=== PATIENT | male | born 1975 | race Caucasian/White ===

== ENCOUNTER 2016-08-21 11:19 | Emergency (ER) | payer BC ==
--- NOTE | 2016-08-21 11:57 | REP ---
Clinical: Trauma . Technique: Internal rotation, external rotation, and Y view left shoulder . Findings: No acute fracture or dislocation. The acromioclavicular and glenohumeral joints are intact. No periarticular calcifications or degenerative changes are appreciated. Sub acromial space is normal. Surrounding soft tissues are unremarkable. Impression: Normal left shoulder radiographs. Signed by Gustavo Mann MD 08/21/2016 11:47 A
--- NOTE | 2016-08-21 12:50 | EDDOCDS ---
Physician Documentation [facility] Name: Wilfrido Yadav Age: 41 yrs Sex: Male : 1975 Arrival Date: 08/21/2016 Time: 11:19 Bed I9 / 22 Private MD: Joe Dawson Disposition: 08/21/16 12:21 Discharged to Home/Self Care. Impression: Contusion of left shoulder. - Condition is Stable. - Discharge Instructions: Shoulder Pain. - Prescriptions for Ibuprofen 600 mg Oral Tablet - take 1 tablet by ORAL route every 6 hours As needed take with food; 30 tablet. - Medication Reconciliation, Local Pharmacy Hours form. - Follow up: Joe Dawson MD; When: As needed; Reason: Continuance of care. - Problem is new. - Symptoms are unchanged. - Notes: ice 20 min an hour Historical: - Allergies: no known allergies; - Home Meds: 1. nortriptyline 75 mg Oral cap 1 cap nightly - PMHx: Intercostal Neuropathy; - PSHx: Cholecystectomy; - Social history: Smoking status: Patient states was never smoker of tobacco. No barriers to communication noted, The patient speaks fluent Hungarian. - Family history: Not pertinent. - : The pt / caregiver states he / she is not on anticoagulants. Home medication list is obtained from the patient. - Exposure Risk Screening:: None identified. Vital Signs: 08/21 11:21 BP 167 / 87; Pulse 106; Resp 18; Temp 98.8(O); Pulse Ox 99% on R/A; Weight 99.79 kg / sar1 220 lbs (R); Height 65 in. (165.10 cm) (R); Pain 5/10; 12:48 BP 143 / 94; Pulse 102; Resp 20; Temp 97.8(O); Pulse Ox 96% on R/A; Pain 5/10; jml1 11:21 Body Mass Index 36.61 (99.79 kg, 165.10 cm) sar1 MDM: 11:33 Shoulder, Complete Ordered. EDMS Signatures: Dispatcher [employer] EDMS Cirilo Henderson RN RN po Elsner, Karl, AIRPORT CLERK AIRPORT CLERK Lidia Oliver RN RN jc4 MTDD
--- NOTE | 2016-08-21 12:50 | EDDOCDS ---
Nurse's Notes [facility] Name: Wilfrido Yadav Age: 41 yrs Sex: Male : 1975 Arrival Date: 08/21/2016 Time: 11:19 Bed I9 / 22 Private MD: Joe Dawson Diagnosis: Contusion of left shoulder Presentation: 08/21 11:26 Presenting complaint: Patient states: tripped and landed on left shoulder this am, pain po since. Adult Sepsis Screening: The patient does not have new or worsening altered mentation. Patient's respiratory rate is less than 22. Systolic blood pressure is greater than 100. Patient has a qSOFA score of 0- Negative Sepsis Screen. Suicide/Homicide risk assessment- the patient denies having any suicidal and/or homicidal ideations and does not present with any other emotional, behavioral or mental health complaints. Status: Patient is not a electrical service technician or dependent. Transition of care: patient was not received from another setting of care. 11:26 Acuity: PJ Level 4 po 11:26 Method Of Arrival: Walkin/Carried/Asstd po Triage Assessment: 11:28 General: Appears in no apparent distress, comfortable, Behavior is appropriate for age, po cooperative. Pain: Location: anterior aspect of left shoulder Pain currently is 5 out of 10 on a pain scale. Quality of pain is described as sharp, Is continuous. Pt Declines HIV testing. Neurological: Level of Consciousness is awake, alert, Oriented to person, place, time. Respiratory: Airway is patent Respiratory effort is even, unlabored. Derm: Skin is pink, warm & dry. Historical: - Allergies: no known allergies; - Home Meds: 1. nortriptyline 75 mg Oral cap 1 cap nightly - PMHx: Intercostal Neuropathy; - PSHx: Cholecystectomy; - Social history: Smoking status: Patient states was never smoker of tobacco. No barriers to communication noted, The patient speaks fluent Emirati. - Family history: Not pertinent. - : The pt / caregiver states he / she is not on anticoagulants. Home medication list is obtained from the patient. - Exposure Risk Screening:: None identified. Screenin:48 Screening information is obtained from the patient. Fall risk: No risks identified. jc4 Assistance ADL's: requires no assistance with activities of daily living. Abuse/DV Screen: The patient / caregiver reports he/she is: not in a situation that causes fear, pain or injury. Nutritional screening: No deficits noted. Advance Directives: Currently, there is no health care proxy. There is no active DNR order. There is no living will. There is no Power of Tower Erector. home support is adequate. Assessment: 12:47 General: Appears in no apparent distress, Behavior is cooperative, pleasant. Pain: jc4 Location: anterior aspect of left shoulder Pain currently is 5 out of 10 on a pain scale. Neurological: Level of Consciousness is awake, alert, Oriented to person, place, time. Respiratory: Airway is patent Respiratory effort is even, unlabored, Respiratory pattern is regular, symmetrical. Derm: Skin is pink, warm & dry. Vital Signs: 11:21 BP 167 / 87; Pulse 106; Resp 18; Temp 98.8(O); Pulse Ox 99% on R/A; Weight 99.79 kg sar1 (R); Height 65 in. (165.10 cm) (R); Pain 5/10; 12:48 BP 143 / 94; Pulse 102; Resp 20; Temp 97.8(O); Pulse Ox 96% on R/A; Pain 5/10; jml1 11:21 Body Mass Index 36.61 (99.79 kg, 165.10 cm) [facility] Vitals: 11:21 Log In Time: August 21, 2016 at 11:[address] [facility] ED Course: 11:21 Patient visited by Karen Wahl, Web Systems Developer. sar1 11:21 Joe Dawson MD is Private Physician. sar1 11:21 Patient moved to Waiting sar1 11:23 Patient moved to Pre RCE sar1 11:27 Triage Initiated po 11:28 Arm band placed on left wrist. Patient placed in waiting room. Family accompanied po patient. 11:29 Patient visited by Cirilo Henderson,AKUA. po 12:05 Lidia Hutton, AKUA is Primary Nurse. dy 12:05 Patient moved to I9 dy 12:12 Elvin Borges FNP is PHCP. ke 12:12 Patient visited by Elvin Borges FNP. ke 12:12 Patient visited by Elvin Borges FNP. ke 12:17 Shoulder, Complete Returned. EDMS 12:21 Joe Dawson MD is Referral Physician. ke 12:48 Patient visited by Jose Ribeiro. jm 12:48 The patient / caregiver is instructed regarding the plan of care and ED course. jc4 12:48 No IV's were initiated during this patient's visit. No procedures done that require 4 assistance. Order Results: Radiology Order: Shoulder, Complete Test: Shoulder, Complete REASON FOR EXAMINATION: Trauma; Clinical: Trauma .; ; Technique: Internal rotation, external rotation, and Y view left shoulder .; ; Findings:; No acute fracture or dislocation. The acromioclavicular and glenohumeral joints; are intact. No periarticular calcifications or degenerative changes are; appreciated. Sub acromial space is normal. Surrounding soft tissues are; unremarkable.; ; Impression:; Normal left shoulder radiographs.; ; ; Signed by; Gustavo Mann MD 08/21/2016 11:47 A; Outcome: 12:21 Discharge ordered by Provider. ke 12:48 Discharge Assessment: Patient awake, alert and oriented x 3. No cognitive and/or jc4 functional deficits noted. Patient verbalized understanding of disposition instructions. patient administered narcotics - no. The following High Risk Discharge criteria are identified: None. Discharged to home ambulatory, with significant other. Condition: stable. Discharge instructions given to patient, Instructed on discharge instructions, follow up and referral plans. medication usage, Demonstrated understanding of instructions, medications, Pt was receptive of discharge instructions/ teaching. No special radiology studies were completed. Property :Personal belongings accompany Pt. 12:49 Patient left the ED. jc4 Signatures: Dispatcher [employer] EDMO Cirilo Henderson,RN Zeeshan Buitrago, RN Elvin Kraus FNP FNP ke Castle, Jennifer, RN RN jc4 Jose Ribeirol1 Karen Wahl, Web Systems Developer Unit sar1 MTDD
--- NOTE | 2016-08-23 13:50 | EDDOCDS ---
Physician Documentation [facility] Name: Wilfrido Yadav Age: 41 yrs Sex: Male : 1975 Arrival Date: 08/21/2016 Time: 11:19 Bed I9 / 22 Private MD: Joe Dawson Disposition: 08/21/16 12:21 Discharged to Home/Self Care. Impression: Contusion of left shoulder. - Condition is Stable. - Discharge Instructions: Shoulder Pain. - Prescriptions for Ibuprofen 600 mg Oral Tablet - take 1 tablet by ORAL route every 6 hours As needed take with food; 30 tablet. - Medication Reconciliation, Local Pharmacy Hours form. - Follow up: Joe Dawson MD; When: As needed; Reason: Continuance of care. - Problem is new. - Symptoms are unchanged. - Notes: ice 20 min an hour Historical: - Allergies: no known allergies; - Home Meds: 1. nortriptyline 75 mg Oral cap 1 cap nightly - PMHx: Intercostal Neuropathy; - PSHx: Cholecystectomy; - Social history: Smoking status: Patient states was never smoker of tobacco. No barriers to communication noted, The patient speaks fluent German. - Family history: Not pertinent. - : The pt / caregiver states he / she is not on anticoagulants. Home medication list is obtained from the patient. - Exposure Risk Screening:: None identified. Vital Signs: 08/21 11:21 BP 167 / 87; Pulse 106; Resp 18; Temp 98.8(O); Pulse Ox 99% on R/A; Weight 99.79 kg / sar1 220 lbs (R); Height 65 in. (165.10 cm) (R); Pain 5/10; 12:48 BP 143 / 94; Pulse 102; Resp 20; Temp 97.8(O); Pulse Ox 96% on R/A; Pain 5/10; jml1 11:21 Body Mass Index 36.61 (99.79 kg, 165.10 cm) sar1 MDM: 11:33 Shoulder, Complete Ordered. EDMS 12:57 [facility] Payment Agreement was scanned into [employer] and attached to record. jp5 12:57 Financial registration complete. jp5 08/22 06:47 T-Sheet-- Draft Copy was scanned into [employer] and attached to record. hs2 Signatures: Dispatcher [employer] Information Cirilo Anglin,RN RN Elvin Benites, CARE WORKER Lidia Celaya RN RN jc4 Davey Machado jp5 Carmen Elliott, Reg Reg hs2 The chart was reviewed and I authenticate all verbal orders and agree with the evaluation and treatment provided.Attachments: 08/21 12:57 [facility] jp5 08/22 06:47 T-Sheet-- Draft Copy hs2 Chart Complete MTDD
--- NOTE | 2016-08-23 13:50 | EDDOCDS ---
Nurse's Notes [facility] Name: Wilfrido Yadav Age: 41 yrs Sex: Male : 1975 Arrival Date: 08/21/2016 Time: 11:19 Bed I9 / 22 Private MD: Joe Dawson Diagnosis: Contusion of left shoulder Presentation: 08/21 11:26 Presenting complaint: Patient states: tripped and landed on left shoulder this am, pain po since. Adult Sepsis Screening: The patient does not have new or worsening altered mentation. Patient's respiratory rate is less than 22. Systolic blood pressure is greater than 100. Patient has a qSOFA score of 0- Negative Sepsis Screen. Suicide/Homicide risk assessment- the patient denies having any suicidal and/or homicidal ideations and does not present with any other emotional, behavioral or mental health complaints. Status: Patient is not a youth services librarian or dependent. Transition of care: patient was not received from another setting of care. 11:26 Acuity: PJ Level 4 po 11:26 Method Of Arrival: Walkin/Carried/Asstd po Triage Assessment: 11:28 General: Appears in no apparent distress, comfortable, Behavior is appropriate for age, po cooperative. Pain: Location: anterior aspect of left shoulder Pain currently is 5 out of 10 on a pain scale. Quality of pain is described as sharp, Is continuous. Pt Declines HIV testing. Neurological: Level of Consciousness is awake, alert, Oriented to person, place, time. Respiratory: Airway is patent Respiratory effort is even, unlabored. Derm: Skin is pink, warm & dry. Historical: - Allergies: no known allergies; - Home Meds: 1. nortriptyline 75 mg Oral cap 1 cap nightly - PMHx: Intercostal Neuropathy; - PSHx: Cholecystectomy; - Social history: Smoking status: Patient states was never smoker of tobacco. No barriers to communication noted, The patient speaks fluent Peruvian. - Family history: Not pertinent. - : The pt / caregiver states he / she is not on anticoagulants. Home medication list is obtained from the patient. - Exposure Risk Screening:: None identified. Screenin:48 Screening information is obtained from the patient. Fall risk: No risks identified. jc4 Assistance ADL's: requires no assistance with activities of daily living. Abuse/DV Screen: The patient / caregiver reports he/she is: not in a situation that causes fear, pain or injury. Nutritional screening: No deficits noted. Advance Directives: Currently, there is no health care proxy. There is no active DNR order. There is no living will. There is no Power of Undergraduate Intern. home support is adequate. Assessment: 12:47 General: Appears in no apparent distress, Behavior is cooperative, pleasant. Pain: jc4 Location: anterior aspect of left shoulder Pain currently is 5 out of 10 on a pain scale. Neurological: Level of Consciousness is awake, alert, Oriented to person, place, time. Respiratory: Airway is patent Respiratory effort is even, unlabored, Respiratory pattern is regular, symmetrical. Derm: Skin is pink, warm & dry. Vital Signs: 11:21 BP 167 / 87; Pulse 106; Resp 18; Temp 98.8(O); Pulse Ox 99% on R/A; Weight 99.79 kg sar1 (R); Height 65 in. (165.10 cm) (R); Pain 5/10; 12:48 BP 143 / 94; Pulse 102; Resp 20; Temp 97.8(O); Pulse Ox 96% on R/A; Pain 5/10; jml1 11:21 Body Mass Index 36.61 (99.79 kg, 165.10 cm) [facility] Vitals: 11:21 Log In Time: August 21, 2016 at 11:21. [facility] ED Course: 11:21 Patient visited by Karen Wahl, Surface Ship Usw Supervisor. sar1 11:21 Joe Dawson MD is Private Physician. sar1 11:21 Patient moved to Waiting sar1 11:23 Patient moved to Pre RCE sar1 11:27 Triage Initiated po 11:28 Arm band placed on left wrist. Patient placed in waiting room. Family accompanied po patient. 11:29 Patient visited by Cirilo Henderson,AKUA. po 12:05 Lidia Hutton, AKUA is Primary Nurse. dy 12:05 Patient moved to I9 dy 12:12 Elvin Borges FNP is PHCP. ke 12:12 Patient visited by Elvin Borges FNP. ke 12:12 Patient visited by Elvin Borges FNP. ke 12:17 Shoulder, Complete Returned. EDMS 12:21 Joe Dawson MD is Referral Physician. ke 12:48 Patient visited by Jose Ribeiro. lester 12:48 The patient / caregiver is instructed regarding the plan of care and ED course. jc4 12:48 No IV's were initiated during this patient's visit. No procedures done that require 4 assistance. 12:56 Patient name changed from Wilfrido\S\\S\Ruperd\S\ to Wilfrido\S\Danny\S\Ruperd. EDMS 12:57 [facility] Payment Agreement was scanned into [employer] and attached to record. 5 08/22 06:47 T-Sheet-- Draft Copy was scanned into [employer] and attached to record. hs2 Order Results: Radiology Order: Shoulder, Complete Test: Shoulder, Complete REASON FOR EXAMINATION: Trauma; Clinical: Trauma .; ; Technique: Internal rotation, external rotation, and Y view left shoulder .; ; Findings:; No acute fracture or dislocation. The acromioclavicular and glenohumeral joints; are intact. No periarticular calcifications or degenerative changes are; appreciated. Sub acromial space is normal. Surrounding soft tissues are; unremarkable.; ; Impression:; Normal left shoulder radiographs.; ; ; Signed by; Gustavo Mann MD 08/21/2016 11:47 A; Outcome: 08/21 12:21 Discharge ordered by Provider. 12:48 Discharge Assessment: Patient awake, alert and oriented x 3. No cognitive and/or jc4 functional deficits noted. Patient verbalized understanding of disposition instructions. patient administered narcotics - no. The following High Risk Discharge criteria are identified: None. Discharged to home ambulatory, with significant other. Condition: stable. Discharge instructions given to patient, Instructed on discharge instructions, follow up and referral plans. medication usage, Demonstrated understanding of instructions, medications, Pt was receptive of discharge instructions/ teaching. No special radiology studies were completed. Property :Personal belongings accompany Pt. 12:49 Patient left the ED. jc4 Signatures: [facility]patcher [facility] Cirilo Henderson,Zeeshan Buitrago RN, RN Elvin Kraus, TRACING LATHE SET UP OPERATOR TRACING LATHE SET UP OPERATOR Lidia Oliver RN RN jc4 Jose Ribeiro jml1 Karen Wahl, Surface Ship Usw Supervisor Unit sar1 Davey Machado jp5 Elliott, Caremn, Reg Reg hs2 Chart Complete MTDD
--- NOTE | 2016-08-23 13:50 | EDDOCDS ---
Physician Documentation [facility] Name: Wilfrido Yadav Age: 41 yrs Sex: Male : 1975 Arrival Date: 08/21/2016 Time: 11:19 Bed I9 / 22 Private MD: Joe Dawson Disposition: 08/21/16 12:21 Discharged to Home/Self Care. Impression: Contusion of left shoulder. - Condition is Stable. - Discharge Instructions: Shoulder Pain. - Prescriptions for Ibuprofen 600 mg Oral Tablet - take 1 tablet by ORAL route every 6 hours As needed take with food; 30 tablet. - Medication Reconciliation, Local Pharmacy Hours form. - Follow up: Joe Dawson MD; When: As needed; Reason: Continuance of care. - Problem is new. - Symptoms are unchanged. - Notes: ice 20 min an hour Historical: - Allergies: no known allergies; - Home Meds: 1. nortriptyline 75 mg Oral cap 1 cap nightly - PMHx: Intercostal Neuropathy; - PSHx: Cholecystectomy; - Social history: Smoking status: Patient states was never smoker of tobacco. No barriers to communication noted, The patient speaks fluent Malian. - Family history: Not pertinent. - : The pt / caregiver states he / she is not on anticoagulants. Home medication list is obtained from the patient. - Exposure Risk Screening:: None identified. Vital Signs: 08/21 11:21 BP 167 / 87; Pulse 106; Resp 18; Temp 98.8(O); Pulse Ox 99% on R/A; Weight 99.79 kg / sar1 220 lbs (R); Height 65 in. (165.10 cm) (R); Pain 5/10; 12:48 BP 143 / 94; Pulse 102; Resp 20; Temp 97.8(O); Pulse Ox 96% on R/A; Pain 5/10; jml1 11:21 Body Mass Index 36.61 (99.79 kg, 165.10 cm) sar1 MDM: 11:33 Shoulder, Complete Ordered. EDMS 12:57 [facility] Payment Agreement was scanned into [employer] and attached to record. jp5 12:57 Financial registration complete. jp5 08/22 06:47 T-Sheet-- Draft Copy was scanned into [employer] and attached to record. hs2 Signatures: Dispatcher [facility] Cirilo Anglin,RN RN Elvin Benites, SCREEN AND CYCLONE REPAIRER Lidia Celaya RN RN jc4 Davey Machado jp5 Carmen Elliott, Reg Reg hs2 The chart was reviewed and I authenticate all verbal orders and agree with the evaluation and treatment provided.Attachments: 08/21 12:57 [facility] Payment Agreement jp5 08/22 06:47 T-Sheet-- Draft Copy hs2 Chart Complete MTDD
== END 2016-08-21 12:49 | disposition home or self-care (01) ==
LOC: M ED 11:19
DX: S40.012A Contusion of left shoulder, initial encounter (principal); W19.XXXA Unspecified fall, initial encounter; Y92.019 Unspecified place in single-family (private) house as the place of occurrence of the external cause; Y93.9 Activity, unspecified; Y99.9 Unspecified external cause status; G58.0 Intercostal neuropathy; Z79.899 Other long term (current) drug therapy

== ENCOUNTER → 2016-11-17 | Outpatient (CLI) | payer BC ==
--- NOTE | 2016-11-17 13:36 | REP ---
Scrotal ultrasound including Doppler assessment: The testes are normal size. The right testis measures 4.5 x 2.5 x 3.5 cm. The left testis measures 4.4 x 2.3 x 3.14 cm. The testicular parenchyma is homogeneous bilaterally. There are no testicular masses. With Doppler assessment there is vascular flow in both testes. The Doppler resistive index of the intraparenchymal arteries on the right zero point 48 on the left 0.50. The epididymal heads are normal size. The right epididymal head measures 11.6 mm. The left epididymal head measures 11.3 mm. There is a 2.6 cm right epididymal head cyst. With color Doppler assessment there is no increased vascular flow in either the right and the left epididymi. There are small bilateral hydroceles. With color Doppler assessment there are small bilateral varicoceles. Impression: Small bilateral varicoceles. Small bilateral hydroceles. No evidence of epididymitis by ultrasound. There is a small right epididymal head cyst. There are no testicular masses. There is vascular flow in both testes. Signed by Wilfrido Hastings MD 11/17/2016 01:27 P
== END ==
LOC: M RAD 12:35
PROVIDERS: ATTEND Family Medicine
DX: N50.3 Cyst of epididymis (principal); I86.1 Scrotal varices

== ENCOUNTER → 2016-11-25 | Outpatient (REF) | payer BC ==
[2016-11-25 12:56] LABS: ALBUMIN 4.1 GM/DL (3.2-5.2); ALBUMIN/GLOBULIN RATIO 1.21 (1.00-1.93); ALKALINE PHOSPHATASE 100 U/L (45-117); ALT/SGPT 82 U/L (12-78); ANION GAP 7 MEQ/L (8-16); AST/SGOT 47 U/L (15-37); BILIRUBIN,TOTAL 0.6 MG/DL (0.2-1.0); BLOOD UREA NITROGEN 23 MG/DL (7-18); CALCIUM LEVEL 9.6 MG/DL (8.5-10.1); CARBON DIOXIDE LEVEL 27 MEQ/L (21-32); CHLORIDE LEVEL 107 MEQ/L (98-107); CHOLESTEROL LEVEL 170 MG/DL (<200); CREATININE FOR GFR 1.17 MG/DL (0.70-1.30); GLOMERULAR FILTRATION RATE > 60.0 (>60); GLUCOSE, FASTING 107 MG/DL (70-105); POTASSIUM SERUM 4.4 MEQ/L (3.5-5.1); SODIUM LEVEL 141 MEQ/L (136-145); TOTAL PROTEIN 7.5 GM/DL (6.4-8.2); TRIGLYCERIDES LEVEL 194 MG/DL (<150)
== END ==
LOC: M SFHCPLAZ 09:41
PROVIDERS: ATTEND Family Medicine
DX: I10 Essential (primary) hypertension (principal); E78.2 Mixed hyperlipidemia; R73.01 Impaired fasting glucose; N45.1 Epididymitis

== ENCOUNTER → 2017-09-13 | Outpatient (CLI) | payer OTHER | LOC: M LRY 16:31 | DX: M25.511 Pain in right shoulder (principal); M19.011 Primary osteoarthritis, right shoulder | CPT/HCPCS: 73030 ==

== ENCOUNTER → 2018-03-26 | Outpatient (REF) | payer OTHER ==
[2018-03-26 11:13] LABS: APPEARANCE, URINE CLEAR (CLEAR); BACTERIA, URINE AUTO NEGATIVE (NEGATIVE); BILIRUBIN, URINE AUTO NEGATIVE (NEGATIVE); BLOOD, URINE BLOOD NEGATIVE (NEGATIVE); COLOR, URINE YELLOW (YELLOW); GLUCOSE, URINE (UA) AUTO NEGATIVE (NEGATIVE); KETONE, URINE AUTO NEGATIVE (NEGATIVE); LEUKOCYTE ESTERASE, URINE AUTO NEGATIVE (NEGATIVE); MUCUS, URINE SMALL (NEGATIVE); NITRITE, URINE AUTO NEGATIVE (NEGATIVE); PROTEIN, URINE AUTO NEGATIVE (NEGATIVE); RBC, URINE AUTO 2 /HPF (0-3); SPECIFIC GRAVITY URINE AUTO 1.021 (1.002-1.035); SQUAMOUS EPITHELIAL CELL UR AU 0 /HPF (0-6); UROBILINOGEN, URINE AUTO 0.2 mg/dL (0.0-2.0); WBC, URINE AUTO 0 /HPF (0-3)
[2018-03-26 11:37] LABS: ALBUMIN 3.9 GM/DL (3.2-5.2); ALBUMIN/GLOBULIN RATIO 1.08 (1.00-1.93); ALKALINE PHOSPHATASE 102 U/L (45-117); ALT/SGPT 75 U/L (12-78); ANION GAP 9 MEQ/L (8-16); AST/SGOT 43 U/L (7-37); BILIRUBIN,TOTAL 0.6 MG/DL (0.2-1.0); BLOOD UREA NITROGEN 17 MG/DL (7-18); CARBON DIOXIDE LEVEL 25 MEQ/L (21-32); CHLORIDE LEVEL 108 MEQ/L (98-107); CHOLESTEROL LEVEL 137 MG/DL (<200); CHOLESTEROL RISK RATIO 3.914 (<5); CREATININE FOR GFR 1.08 MG/DL (0.70-1.30); FREE T4 1.02 NG/DL (0.76-1.46); GLOMERULAR FILTRATION RATE > 60.0 (>60); GLUCOSE, FASTING 96 MG/DL (70-100); HDL CHOLESTEROL 35 MG/DL (>40); LDL CHOLESTEROL 67.6 MG/DL (<100); NON-HDL-C 102 MG/DL; POTASSIUM SERUM 4.3 MEQ/L (3.5-5.1); SODIUM LEVEL 142 MEQ/L (136-145); TOTAL PROTEIN 7.5 GM/DL (6.4-8.2); TRIGLYCERIDES LEVEL 172 MG/DL (<150)
[2018-03-26 11:45] LABS: MALB URINE SIEMENS 18.7 MG/L; MAU/CREAT RATIO 10.9 MCG/MG (0.0-30.0)
[2018-03-26 12:04] LABS: ESTIMATED AVERAGE GLUCOSE 140 MG/DL (60-110); HEMOGLOBIN A1c 6.5 %
[2018-03-27 14:14] LABS: INSULIN LEVEL 15.2 uIU/mL (2.6-24.9)
[2018-03-30 15:17] LABS: FIBROSPECT1 SEE SEPARATE REPORT
== END ==
LOC: M SFHCPLAZ 08:05
DX: R73.01 Impaired fasting glucose (principal); E78.2 Mixed hyperlipidemia; K76.0 Fatty (change of) liver, not elsewhere classified

== ENCOUNTER → 2018-09-11 | Outpatient (REF) | payer OTHER ==
[2018-09-11 10:59] LABS: BASO % 0.5 % (0.0-1.0); EOS # 0.3 10^3/uL (0.0-0.50); EOS % 5.3 % (0.0-3.0); HEMATOCRIT 49.2 % (42.0-52.0); HEMOGLOBIN 16.2 g/dl (13.5-17.5); LYMPH # 1.8 10^3/uL (1.5-4.5); LYMPH % 31.7 % (24.0-44.0); MEAN CORPUSCULAR HEMOGLOBIN 28.2 pg (27.0-33.0); MEAN CORPUSCULAR HGB CONC 32.9 g/dl (32.0-36.5); MEAN CORPUSCULAR VOLUME 85.6 fl (80.0-96.0); MONO # 0.4 10^3/uL (0.0-0.8); MONO % 7.8 % (0.0-5.0); NEUTROPHILS % 54.5 % (36.0-66.0); PLATELET COUNT, AUTOMATED 191 10^3/uL (150-450); RED BLOOD COUNT 5.75 10^6/uL (4.30-6.10); WHITE BLOOD COUNT 5.5 10^3/uL (4.0-10.0)
[2018-09-11 11:04] LABS: ALT/SGPT 95 U/L (12-78); BILIRUBIN,TOTAL 0.8 MG/DL (0.2-1.0); BLOOD UREA NITROGEN 16 MG/DL (7-18); CALCIUM LEVEL 8.9 MG/DL (8.5-10.1); CARBON DIOXIDE LEVEL 27 MEQ/L (21-32); CHLORIDE LEVEL 108 MEQ/L (98-107); CHOLESTEROL LEVEL 200 MG/DL (<200); CREATININE FOR GFR 1.12 MG/DL (0.70-1.30); GLOMERULAR FILTRATION RATE > 60.0 (>60); GLUCOSE, FASTING 101 MG/DL (70-100); POTASSIUM SERUM 4.2 MEQ/L (3.5-5.1); SODIUM LEVEL 142 MEQ/L (136-145); TRIGLYCERIDES LEVEL 228 MG/DL (<150)
[2018-09-11 11:05] LABS: ALBUMIN 3.9 GM/DL (3.2-5.2); CHOLESTEROL RISK RATIO 5.263 (<5); HDL CHOLESTEROL 38 MG/DL (>40); LDL CHOLESTEROL 116 MG/DL (<100); MAGNESIUM LEVEL 2.4 MG/DL (1.8-2.4); NON-HDL-C 162 MG/DL; TOTAL PROTEIN 6.8 GM/DL (6.4-8.2)
== END ==
LOC: M SFHCPLAZ 08:32
PROVIDERS: ATTEND Nurse Practitioner Family
DX: R73.01 Impaired fasting glucose (principal); E78.2 Mixed hyperlipidemia; I10 Essential (primary) hypertension

== ENCOUNTER → 2019-06-21 | Outpatient (CLI) | payer OTHER ==
[2019-06-21 09:51] LABS: APPEARANCE, URINE CLEAR (CLEAR); BACTERIA, URINE AUTO NEGATIVE (NEGATIVE); BILIRUBIN, URINE AUTO NEGATIVE (NEGATIVE); BLOOD, URINE BLOOD NEGATIVE (NEGATIVE); COLOR, URINE YELLOW (YELLOW); GLUCOSE, URINE (UA) AUTO NEGATIVE (NEGATIVE); KETONE, URINE AUTO NEGATIVE (NEGATIVE); LEUKOCYTE ESTERASE, URINE AUTO NEGATIVE (NEGATIVE); MUCUS, URINE SMALL (NEGATIVE); NITRITE, URINE AUTO NEGATIVE (NEGATIVE); PROTEIN, URINE AUTO NEGATIVE (NEGATIVE); RBC, URINE AUTO 1 /HPF (0-3); SPECIFIC GRAVITY URINE AUTO 1.018 (1.002-1.035); SQUAMOUS EPITHELIAL CELL UR AU 0 /HPF (0-6); UROBILINOGEN, URINE AUTO 0.2 mg/dL (0.0-2.0); WBC, URINE AUTO 1 /HPF (0-3)
[2019-06-21 10:18] LABS: C REACTIVE PROTEIN QUANTITATIV < 0.30 MG/DL (0.00-0.30); CHOLESTEROL LEVEL 162 MG/DL (<200); CHOLESTEROL RISK RATIO 4.628 (<5); HDL CHOLESTEROL 35 MG/DL (>40); LDL CHOLESTEROL 52 MG/DL (<100); NON-HDL-C 127 MG/DL; TRIGLYCERIDES LEVEL 376 MG/DL (<150)
[2019-06-21 10:26] LABS: MALB URINE SIEMENS 31.1 MG/L; MAU/CREAT RATIO 27.7 MCG/MG (0.0-30.0)
[2019-06-21 10:53] LABS: HEMOGLOBIN A1c 6.5 %
== END ==
LOC: M WUC 08:20
PROVIDERS: ATTEND Family Medicine
DX: E11.9 Type 2 diabetes mellitus without complications (principal); E78.2 Mixed hyperlipidemia

== ENCOUNTER → 2020-03-02 | Outpatient (CLI) | payer OTHER ==
--- NOTE | 2020-03-02 12:18 | REP ---
REASON: Trauma 3 days ago. There are degenerative changes present particularly affecting the 1st tarsometatarsal joint where there is marginal osteophytosis and mild irregular joint space narrowing. There is no evidence of acute fracture. IMPRESSION: Chronic changes as described above. No evidence of acute fracture. Electronically Signed by Ervin Zapata DO 03/02/2020 02:27 P
== END ==
LOC: M LRY 10:22
PROVIDERS: ATTEND Physician Assistant
DX: S99.921A Unspecified injury of right foot, initial encounter (principal); X58.XXXA Exposure to other specified factors, initial encounter; Y92.89 Other specified places as the place of occurrence of the external cause

== ENCOUNTER → 2020-05-15 | Outpatient (CLI) | payer OTHER ==
[~2020-05-15] MED LIST: HYDR-3713 PO
== END ==
LOC: M LABSMTC 10:08
PROVIDERS: ATTEND Anesthesiology
DX: Z01.812 Encounter for preprocedural laboratory examination (principal); Z20.828 Contact with and (suspected) exposure to other viral communicable diseases

== ENCOUNTER 2020-05-20 09:39 | Day surgery (SDC) | payer OTHER ==
[~2020-05-20] VITALS: Ht 167.6 cm; Wt 106.6 kg
[~2020-05-20 09:39] MED LIST changes: -HYDR-3713 PO; +LR 1,000 ML IV ONE; +ceFAZolin SOD 2 GM in IV 1 EA IV ONE
[2020-05-20] MEDS ORDERED: LIDOCAINE 2% 100MG/5ML SDV (FOR ANES.) As Ordered ONE (11:18)
[2020-05-20] MEDS ORDERED: propofoL 200 MG/20 ML VIAL As Ordered ONE (11:18)
[2020-05-20] MEDS ORDERED: fentaNYL 100 MCG/2 ML INJECTION (J3010) As Ordered ONE (11:18)
[2020-05-20] MEDS ORDERED: MIDAZOLAM INJ 2MG/2ML VIAL (J2250 PER 1MG) As Ordered ONE (11:18)
[2020-05-20] MEDS ORDERED: LIDOCAINE 1% MDV 20ML VIAL As Ordered ONE (11:44)
[2020-05-20] MEDS ORDERED: dexameTHASONE 4 MG/ML 1ML VIAL (J1100 PER 1MG) As Ordered ONE (11:44)
[2020-05-20] MEDS ORDERED: BUPIVACAINE HCL 0.5% 30 ML VIAL As Ordered ONE (11:45)
[2020-05-20] MEDS ORDERED: HYDR-3713 PO (12:51)
[2020-05-20 13:40] VITALS: BP 139/86
--- NOTE | 2020-05-26 14:31 | RO ---
DATE OF OPERATION: 05/20/2020 SURGEON: Naldo Kapoor DPM SPORTS DOCTOR: None. PREOPERATIVE DIAGNOSIS: Right foot hallux rigidus. POSTOPERATIVE DIAGNOSIS: Right foot hallux rigidus. PROCEDURE: Right foot 1st metatarsophalangeal joint cheilectomy. ANESTHESIA: Monitored anesthesia care. PREOPERATIVE INJECTION: 16 mL of 1:1 mixture of 1% Lidocaine plain and 0.5% Marcaine plain. ESTIMATED BLOOD LOSS: Minimal. MATERIALS: 3-0 and 4-0 Vicryl, 4-0 nylon. INJECTABLES: 1 mL Decadron 4 mg/mL. COMPLICATIONS: None. CONDITION: Stable. INDICATIONS: The patient is a 45-year-old male who has painful bone spurring to his right big toe joint. He presented for surgical correction. The patient, site and side were identified and marked in preoperatively. Consent was reviewed and obtained. Risks, complications and alternatives to the procedure were explained to the patient in detail and all questions were answered. PROCEDURE: The patient was brought to the operating room and placed on the operating table in supine position. Monitored anesthesia care was delivered by the anesthesia team. Preoperative injection of 16 mL 1:1 mixture of 1% Lidocaine plain and 0.5% Marcaine plain was injected into the right foot. Right foot was prepped and draped in normal sterile fashion. Tourniquet was applied to the right ankle and inflated at 215 mmHg. Dorsal incision was made over the 1st metatarsophalangeal joint and carried through with #15 blade. Dissection was carried until the joint capsule was identified. T-capsulotomy was performed exposing the metatarsal head and joint. There was an osteophyte within the joint which was removed with #15 blade and there was a large spur on the dorsal 1st metatarsal. This was removed with sagittal saw and smoothed with rasp. Some cartilage erosion was noted to the central aspect of the metatarsal head. This was fenestrated with 4.5 K-wire. Site was irrigated with normal saline. Capsular repair was performed with 3-0 Vicryl, subcutaneous closure with 4-0 Vicryl and skin closure with 4-0 nylon. 1 mL Decadron was injected. Sterile dressing was applied. Tourniquet was deflated. The patient was brought to PACU with vital signs stable and neurovascular status intact. He will be weightbearing as tolerated, follow up in the office in 2 days. CHIQUITA
== END 2020-05-20 13:44 | disposition home or self-care (01) ==
LOC: M SDC 09:39
PROVIDERS: ATTEND Podiatrist Foot & Ankle Surgery
DX: M20.21 Hallux rigidus, right foot (principal); Z88.8 Allergy status to other drugs, medicaments and biological substances
CPT/HCPCS: 28289; 88300; J0690; J1100; J2250; J3010

== ENCOUNTER → 2020-10-07 | Outpatient (REF) | payer OTHER ==
[~2020-10-07] MED LIST changes: +HYDR-3713 PO; -LR 1,000 ML IV ONE; -ceFAZolin SOD 2 GM in IV 1 EA IV ONE
[2020-10-07 15:22] LABS: BASO % 0.6 % (0.0-1.0); EOS # 0.2 10^3/uL (0.0-0.5); EOS % 3.8 % (0.0-3.0); HEMATOCRIT 51.5 % (42.0-52.0); HEMOGLOBIN 16.6 g/dl (13.5-17.5); LYMPH # 2.2 10^3/uL (1.5-5.0); LYMPH % 34.1 % (24.0-44.0); MEAN CORPUSCULAR HEMOGLOBIN 26.9 pg (27.0-33.0); MEAN CORPUSCULAR HGB CONC 32.2 g/dl (32.0-36.5); MEAN CORPUSCULAR VOLUME 83.5 fl (80.0-96.0); MONO # 0.5 10^3/uL (0.0-0.8); MONO % 8.3 % (2.0-8.0); NEUTROPHILS # 3.4 10^3/uL (1.5-8.5); PLATELET COUNT, AUTOMATED 210 10^3/uL (150-450); RED BLOOD COUNT 6.17 10^6/uL (4.30-6.10); WHITE BLOOD COUNT 6.4 10^3/uL (4.0-10.0)
[2020-10-07 15:54] LABS: ALT/SGPT 103 U/L (12-78); BILIRUBIN,TOTAL 0.6 MG/DL (0.2-1.0); BLOOD UREA NITROGEN 20 MG/DL (7-18); C REACTIVE PROTEIN QUANTITATIV 0.37 MG/DL (0.00-0.30); CALCIUM LEVEL 10.1 MG/DL (8.5-10.1); CARBON DIOXIDE LEVEL 30 MEQ/L (21-32); CHLORIDE LEVEL 102 MEQ/L (98-107); CHOLESTEROL LEVEL 240 MG/DL (<200); CHOLESTEROL RISK RATIO 7.272 (<5); CK-MB VALUE MASS 2.3 NG/ML (<3.6); CPK CREATINE PHOSPHOKINASE 69 U/L (39-308); CREATININE FOR GFR 1.03 MG/DL (0.70-1.30); FREE T4 0.93 NG/DL (0.76-1.46); GLOMERULAR FILTRATION RATE > 60.0 (>60); GLUCOSE, FASTING 267 MG/DL (70-100); HDL CHOLESTEROL 33 MG/DL (>40); MAGNESIUM LEVEL 2.1 MG/DL (1.8-2.4); MB/CK RELATIVE INDEX 3.33 (< OR =4); NON-HDL-C 207 MG/DL; POTASSIUM SERUM 4.2 MEQ/L (3.5-5.1); SODIUM LEVEL 138 MEQ/L (136-145); THYROID STIMULATING HORMONE 0.877 uIU/ML (0.358-3.740); TOTAL PROTEIN 7.4 GM/DL (6.4-8.2); TRIGLYCERIDES LEVEL 802 MG/DL (<150); TROPONIN I 0.03 NG/ML (< 0.10)
[2020-10-07 15:56] LABS: HEMOGLOBIN A1c 10.3 %
== END ==
LOC: M SFHCPLAZ 14:09
PROVIDERS: ATTEND Nurse Practitioner Family
DX: R07.89 Other chest pain (principal); E11.9 Type 2 diabetes mellitus without complications; E78.2 Mixed hyperlipidemia; I10 Essential (primary) hypertension

== ENCOUNTER → 2020-10-12 | Outpatient (REF) | payer OTHER ==
[2020-10-14 17:06] LABS: C-PEPTIDE 3.1 ng/mL (1.1-4.4); ISLET CELL ANTIBODIES Negative (Neg:<1:1)
== END ==
LOC: M PLALAB 09:06
PROVIDERS: ATTEND Nurse Practitioner Family
DX: E11.9 Type 2 diabetes mellitus without complications (principal)

== ENCOUNTER → 2024-02-28 | Outpatient (CLI) | payer OTHER ==
[~2024-02-28] MED LIST changes: +PROHANCE 279.3MG/ML 15ML VIAL ONE; +PROHANCE 279.3MG/ML 5ML VIAL ONE
== END ==
LOC: M PLAIMG 09:24
PROVIDERS: ATTEND Physician Assistant
DX: H93.11 Tinnitus, right ear (principal)
CPT/HCPCS: 70553; A9576

== ENCOUNTER → 2025-03-26 | Outpatient (CLI) | payer OTHER ==
[~2025-03-26] MED LIST changes: -PROHANCE 279.3MG/ML 15ML VIAL ONE; -PROHANCE 279.3MG/ML 5ML VIAL ONE
== END ==
LOC: M RAD 15:06
PROVIDERS: ATTEND Physician Assistant
DX: F45.8 Other somatoform disorders (principal)

== ENCOUNTER → 2025-08-19 | Outpatient (CLI) | payer OTHER | LOC: M RAD 14:42 | PROVIDERS: ATTEND Nurse Practitioner Family | DX: M54.16 Radiculopathy, lumbar region (principal) ==